=== PATIENT | female | born 2000 | race Hispanic/Latino ===

== ENCOUNTER 2024-06-13 21:45 | Emergency (ER) | payer OTHER ==
[~2024-06-13] VITALS: Ht 152.4 cm; Wt 54.0 kg
[2024-06-13 21:51] VITALS: PULSE 100; RESP 20; TEMP 98.8
[2024-06-13] MEDS ORDERED: BENZOCAINE 20% SPR 60 ML CAN ONE (22:34)
[2024-06-13] MEDS: BENZOCAINE 20% SPR 60 ML CAN MT ONE (22:56)
[2024-06-13] MEDS: LIDOCAINE 1% W/EPINEPHRINE 20 ML VIAL INJ ONE (22:57)
[2024-06-13] MEDS ORDERED: ACETAMINOPHEN-1 EAC3 PO (23:30)
[2024-06-13 23:52] VITALS: BP 136/88; O2SAT 98
[2024-06-13] MEDS: HYDROCODONE/APAP 5MG-325MG TAB PO ONE (23:52)
== END 2024-06-13 23:55 | disposition home or self-care (01) ==
LOC: FSED 22:02
DX: K08.89 Other specified disorders of teeth and supporting structures (principal); K04.7 Periapical abscess without sinus; R68.84 Jaw pain; F41.9 Anxiety disorder, unspecified
CPT/HCPCS: 99284